=== PATIENT | female | born 1990 | race American Indian/Alaskan Native ===

== ENCOUNTER 2018-12-26 07:17 | Inpatient (IN) | payer MEDICAID ==
[2018-12-26] MEDS ORDERED: BRETHINE SUB-Q PRN (08:53)
[2018-12-26] MEDS ORDERED: SUBLIMAZE IV PRN (08:53)
[2018-12-26] MEDS ORDERED: BRETHINE IVP PRN (08:53)
[2018-12-26] MEDS ORDERED: XYLOCAINE 2% INFILTRATI ONE (08:53)
[2018-12-26] MEDS ORDERED: STADOL IV PRN (08:53)
[2018-12-26] MEDS ORDERED: PITOCin/NS 30 UNIT/500ML 30 UNITS/500 ML BAG IV SCH (09:00)
[2018-12-26] MEDS ORDERED: LACTATED RINGERS 1,000 ML IV SCH (09:00)
[2018-12-26] MEDS ORDERED: PITOCin/NS 20 UNIT/1000ML DRIP 20 UNITS/1,000 ML BAG IV SCH (09:00)
[2018-12-26 09:43] LABS: Basophils % (Auto) 0.5 % (0.0-1.8); Eosinophils # (Auto) 0.2 K/mm3 (0.0-0.4); Eosinophils % (Auto) 2.5 % (0.0-4.3); Hemoglobin 11.2 gm/dl (10.1-14.3); Lymphocytes # (Auto) 1.2 K/mm3 (1.2-5.4); Lymphocytes % (Auto) 15.2 % (13.4-35.0); Mean Corpuscular HGB Conc 34 % (30-34); Mean Corpuscular Volume 79 fl (79-97); Monocytes # (Auto) 0.7 K/mm3 (0.0-0.8); Monocytes % (Auto) 8.6 % (0.0-7.3); Platelet Count 184 K/mm3 (140-440); Red Blood Count 4.16 M/mm3 (3.65-5.03)
[2018-12-26] MEDS: LACTATED RINGERS 1,000 ML IV SCH ×3 (10:20→16:31)
--- NOTE | 2018-12-26 10:25 | History and Physical Report ---
History of Present Illness Date of examination: 12/26/18 Date of admission: 12/26/2018 Chief complaint: My water broke History of present illness: Pt is a 28 year old who presents to L&D at 39 weeks with EDC 01/02/19 with complaint of Rupture of membranes. Her course was complicated by late entry into care at 29 weeks. 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 She is GBS negative Past History Past Medical History: no pertinent history Past Surgical History: no surgical history [employer] History: herpes Family/Genetic History: none Social history: single - Obstetrical History Expected Date of Delivery: 01/02/19 Actual Gestation: 39 Week(s) 0 Day(s) : 4 Para: 1 Medications and Allergies Allergies Allergy/AdvReac Type Severity Reaction Status Date / Time No Known Allergies Allergy Verified 12/26/18 08:13 Active Meds: Active Medications Butorphanol Tartrate (Stadol) 2 mg IV Q2H PRN PRN Reason: Pain , Severe (7-10) Ephedrine Sulfate (Ephedrine Sulfate) 10 mg IV Q2M PRN PRN Reason: Hypotension Fentanyl (Sublimaze) 100 mcg IV Q2H PRN PRN Reason: Labor Pain Oxytocin/Sodium Chloride (Pitocin/Ns 20 Unit/1000ml Drip) 20 units in 1,000 mls @ 125 mls/hr IV DIRECT SANDOR Oxytocin/Sodium Chloride (Pitocin/Ns 30 Unit/500ml) 30 units in 500 mls @ 4 mls/hr IV TITR SANDOR; Protocol Lactated Ringer's (Lactated Ringers) 1,000 mls @ 125 mls/hr IV DIRECT SANDOR Last Admin: 12/26/18 10:20 Dose: 125 mls/hr Documented by: Mineral Oil (Mineral Oil) 30 ml PO QHS PRN PRN Reason: Constipation Terbutaline Sulfate (Brethine) 0.25 mg SUB-Q ONCE PRN PRN Reason: Hyperstimulation/Hypertonicity Terbutaline Sulfate (Brethine) 0.25 mg IVP ONCE PRN PRN Reason: Hyperstimulation/Hypertonicity Review of Systems All systems: negative Genitourinary: leakage of fluid - Vital Signs Vital signs: Vital Signs Temp Resp 98.2 F 20 12/26/18 08:00 12/26/18 08:00 Temp Pulse Resp BP Pulse Ox 98.2 F 81 20 122/74 12/26/18 08:00 12/26/18 08:18 12/26/18 08:00 12/26/18 08:18 - Physical Exam Breasts: Cardiovascular: Regular rate, Normal S1, Normal S2 Lungs: Positive: Clear to auscultation, Normal air movement Abdomen: Positive: normal appearance, soft, normal bowel sounds. Negative: distention, tenderness Vulva: both: normal Vagina: Positive: normal moisture. Negative: discharge Cervix: Negative: lesion, discharge Uterus: Positive: normal size, normal contour Adnexa: both: normal Anus/Rectum: Positive: normal perianal skin, heme negative. Negative: rectal mass, hemorrhoids Extremities: Deep Tendon Reflex Grade: Normal +2 - Obstetrical Cervical Dilatation: 2 Cervical Effacement Percentage: 70 station: 2 Uterine Contraction Pattern: Irregular Results Result Diagrams: 12/26/18 09:17 Abnormal lab results 12/26/18 Range/Units 09:17 MCH 27 L (28-32) pg RDW 18.0 H (13.2-15.2) % Snyder % (Auto) 8.6 H (0.0-7.3) % Seg Neutrophils % 73.2 H (40.0-70.0) % All other labs normal. Assessment and Plan 28-year-old IUP at 39 weeks here with rupture of membranes. We'll admit for labor management and augmentation. Will begin Pitocin. Anticipate .
[2018-12-26] MEDS ORDERED: MARCAINE 0.25% INFILTRATI ONE (15:38)
--- NOTE | 2018-12-26 16:01 | Anesthesia Consultation ---
Anesthesia Consult and Med Hx Date of service: 12/26/18 - Airway Anesthetic Teeth Evaluation: Good ROM Head & Neck: Adequate Mental/Hyoid Distance: Adequate Mallampati Class: Class II Intubation Access Assessment: Good - Pulmonary Exam CTA: Yes - Cardiac Exam Cardiac Exam: RRR - Pre-Operative Health Status ASA Pre-Surgery Classification: ASA2 Proposed Anesthetic Plan: Epidural - Pulmonary Hx Asthma: No COPD: No Hx Pneumonia: No - Cardiovascular System Hx Hypertension: No - Central Nervous System Hx Seizures: No Hx Psychiatric Problems: No - Endocrine Hx Renal Disease: No Hx End Stage Renal Disease: No Hx Hypothyroidism: No Hx Hyperthyroidism: No - Hematic Hx Anemia: No Hx Sickle Cell Disease: No - Other Systems Hx Alcohol Use: No
[2018-12-26] MEDS ORDERED: NARCAN 2 MG/2 ML IV PRN (16:02)
[2018-12-26] MEDS ORDERED: fentaNYL-BUPIV 2 MCG/ML-0.125% 200 MCG/100 ML BAG EPIDURAL SCH (17:00)
--- NOTE | 2018-12-26 20:09 | Procedure Note ---
OB Delivery Note - Delivery Date of Delivery: 12/26/18 Surgeon: DEVIN WALDRON Estimated blood loss: 200cc - Vaginal Delivery presentation: vertex Delivery position: OA Intrapartum events: PROM->1hr before delivery Delivery augmentation: pitocin Delivery monitor: external FHT, external uterine Route of delivery: Delivery placenta: spontaneous Delivery cord: nuchal cord Delivery laceration: 1st degree Delivery repair: vicryl Anesthesia: epidural Delivery comments: Viable male delivered over intact perineum with tight nuchal cut and clamped on perineum. Infant delivered without difficulty. placed on maternal abdomen. Placenta delivered spontaneously and intact. Small laceration repaired with 2.0 vicryl. Pt tolerated procedure well. Excellent hemostasis. - Infant A at 1 minute: 8 at 5 minutes: 9 Gender: Male
[2018-12-26] MEDS ORDERED: MINERAL OIL PO PRN (22:00)
[2018-12-26] MEDS ORDERED: BENADRYL PO PRN (23:32)
[2018-12-26] MEDS ORDERED: MILK OF MAGNESIA PO PRN (23:32)
[2018-12-26] MEDS ORDERED: NORCO 5/325 PO PRN (23:32)
[2018-12-26] MEDS ORDERED: PHENERGAN PR PRN (23:32)
[2018-12-26] MEDS ORDERED: LANSINOH TP PRN (23:32)
[2018-12-26] MEDS ORDERED: ZOFRAN IV PRN (23:32)
[2018-12-26] MEDS ORDERED: TYLENOL PO PRN (23:32)
[2018-12-26] MEDS ORDERED: TUCKS PAD TP PRN (23:32)
[2018-12-26] MEDS ORDERED: PHENERGAN PO PRN (23:32)
[2018-12-26] MEDS ORDERED: SODIUM CHLORIDE FLUSH SYRINGE 10 ML IV PRN (23:32)
[2018-12-26] MEDS ORDERED: DULCOLAX PR PRN (23:32)
[2018-12-27] MEDS: IBUPROFEN PO SCH ×5 (00:09→23:39)
[2018-12-27] MEDS: COLACE PO SCH ×3 (00:09→23:38)
[2018-12-27 08:49] LABS: Hematocrit 28.9 % (30.3-42.9); Hemoglobin 9.6 gm/dl (10.1-14.3)
[2018-12-27] MEDS: PRENATAL VITAMIN PO SCH (11:07)
--- NOTE | 2018-12-27 23:37 | Progress Note ---
Assessment and Plan ppd 1 s/p . Doing well. Plan for discharge in the am. Subjective - Subjective Date of service: 12/27/18 Interval history: Pt is a 28 year old who presents to L&D at 39 weeks with EDC 01/02/19 with complaint of Rupture of membranes. Her course was complicated by late entry into care at 29 weeks. 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 She is GBS negative Patient reports: appetite normal, voiding normally, pain well controlled, ambulating normally [place]: doing well Objective - Vital Signs Latest vital signs: Vital Signs Temp Pulse Resp BP BP Pulse Ox 12/27/18 16:18 98.2 F 75 18 128/76 12/27/18 12:36 98.1 F 76 18 128/77 12/27/18 07:16 97.8 F 76 18 104/45 12/27/18 04:41 98.2 F 72 20 137/65 97 12/26/18 23:37 98.5 F 69 20 130/68 98 Intake and Output 12/27/18 12/27/18 12/28/18 14:59 22:59 06:59 Intake Total 960 480 Balance 960 480 Intake: Oral 960 480 Other: Total, Intake Amount 480 480 - Exam Cardiovascular: Present: Regular rate, Normal S1, Normal S2 Lungs: Present: Clear to auscultation, Normal air movement Abdomen: Present: normal appearance, soft Extremities: Present: normal Incision: Present: normal, dry, intact - Labs Labs: Abnormal lab results 12/27/18 Range/Units 08:38 Hgb 9.6 L (10.1-14.3) gm/dl Hct 28.9 L (30.3-42.9) %
--- NOTE | 2018-12-27 23:40 | Discharge Summary ---
Providers - Providers Date of Admission: 12/26/18 10:49 Date of discharge: 12/28/18 Attending physician: DEVIN WALDRON Primary care physician: DEVIN WALDRON Hospitalization Reason for admission: active labor, rupture of membranes Delivery: Laceration: 1st degree Other procedures: none Discharge diagnosis: IUP at term delivered baby: male Hospital course: unremarkable Condition at discharge: Good Disposition: DC-30 STILL A PATIENT Plan - Discharge Medications Prescriptions: Ibuprofen [Motrin 600 MG tab] 600 mg PO Q6HR #30 tablet HYDROcodone/APAP 5-325 [[place] 5-325 mg TAB] 2 each PO Q6H PRN #20 tablet PRN Reason: Pain, Moderate (4-6) - Provider Discharge Summary Activity: routine, no sex for 6 weeks, no heavy lifting 4 weeks, no strenuous exercise Diet: routine Instructions: routine Additional instructions: [] Smoking cessation referral if applicable(refer to patient education folder for contact #) [] Refer to [facility]'s [facility] Booklet Call your doctor immediately for: * Fever > 100.5 * Heavy vaginal bleeding ( >1 pad per hour) * Severe persistent headache * Shortness of breath * Reddened, hot, painful area to leg or breast * Drainage or odor from incision. * Keep incision clean and dry at all times and follow doctor's instructions regarding bathing/showering - Follow up plan Follow up: DEVIN WALDRON MD [Primary Care Provider] - 6 Weeks
[2018-12-28] MEDS: IBUPROFEN PO SCH ×2 (05:09→10:33)
[2018-12-28] MEDS: COLACE PO SCH (10:22)
[2018-12-28] MEDS: PRENATAL VITAMIN PO SCH (10:22)
[2018-12-28 11:17] VITALS: BP 116/80
== END 2018-12-28 11:10 | disposition home or self-care (01) | DRG 774 ==
LOC: TRG 07:17 → LD 10:49 → OB 22:54
PROVIDERS: ADMIT Obstetrics & Gynecology; ATTEND Obstetrics & Gynecology
PROC: 10E0XZZ Delivery of Products of Conception, External Approach (ICD-10-PCS; principal; 2018-12-26)
PROC: 0HQ9XZZ Repair Perineum Skin, External Approach (ICD-10-PCS; 2018-12-26)
PROC: 3E0R3BZ Introduction of Anesthetic Agent into Spinal Canal, Percutaneous Approach (ICD-10-PCS; 2018-12-26)
PROC: 00HU33Z Insertion of Infusion Device into Spinal Canal, Percutaneous Approach (ICD-10-PCS; 2018-12-26)
DX: O42.02 Full-term premature rupture of membranes, onset of labor within 24 hours of rupture (principal); O98.32 Other infections with a predominantly sexual mode of transmission complicating childbirth; O69.81X0 Labor and delivery complicated by cord around neck, without compression, not applicable or unspecified; O70.0 First degree perineal laceration during delivery; Z3A.39 39 weeks gestation of pregnancy; Z37.0 Single live birth
CPT/HCPCS: 36415; 59025; 85014; 85018; 85025; 86592; 86850; 86900; 86901; 96360; G0378; J2590; J3010; J7120